=== PATIENT | female | born 1985 | race Two or more races ===

== ENCOUNTER 2021-05-12 23:16 | Inpatient (IN) | payer SELFPAY ==
[~2021-05-12] VITALS: Ht 154.9 cm; Wt 102.0 kg
[2021-05-12] MEDS ORDERED: 0.9 % SODIUM CHLORIDE 10 ML DISP.SYRIN. IV PRN (23:45)
[2021-05-12] MEDS ORDERED: BUTORPHANOL 2 MG/ML VIAL. IVP PRN ×2 (23:45)
[2021-05-12] MEDS ORDERED: LIDOCAINE 1% PF 30 ML VIAL. INJ PRN (23:45)
[2021-05-12] MEDS ORDERED: OXYTOCIN 30 UNIT/500 ML PREMIX 500 ML IV PRN ×2 (23:45)
[2021-05-12] MEDS ORDERED: ACETAMINOPHEN 325 MG TABLET. PO PRN (23:45)
[2021-05-12] MEDS ORDERED: TERBUTALINE 1 MG/ML VIAL. SQ PRN (23:45)
[2021-05-13 00:45] LABS: BASO # 0.2 x10^3/uL (0.0-0.2); BASO % 1 % (0-3); EOS # 0.2 x10^3/uL (0.0-0.7); EOS % 1 % (0-3); HEMATOCRIT 34.5 % (36.0-47.0); LYMPH # 2.7 x10^3/uL (1.0-4.8); LYMPH % 15 % (24-48); MEAN CORPUSCULAR HEMOGLOBIN 27 pg (25-35); MEAN CORPUSCULAR HGB CONC 32 g/dL (31-37); MEAN CORPUSCULAR VOLUME 83 fL (79-100); MONO # 1.1 x10^3/uL (0.0-1.1); MONO % 6 % (0-9); NEUT # 14.3 x10^3/uL (1.8-7.7); NEUT % 78 % (31-73); PLATELET COUNT 308 x10^3/uL (140-400); RED BLOOD COUNT 4.15 x10^6/uL (3.50-5.40); RED CELL DISTRIBUTION WIDTH 16.7 % (11.5-14.5); WHITE BLOOD COUNT 18.5 x10^3/uL (4.0-11.0)
[2021-05-13 00:47] VITALS: BP 125/82
[2021-05-13 00:48] LABS: BILIRUBIN,URINE NEGATIVE (NEG); CLARITY,URINE HAZY; COLOR,URINE YELLOW; NITRITE,URINE NEGATIVE (NEG); PH,URINE 6.5 (<5.0-8.0); PROTEIN,URINE TRACE mg/dL (NEG-TRACE); UROBILINOGEN,URINE 0.2 mg/dL (0.2 mg/dL)
[2021-05-13 00:49] LABS: BACTERIA,URINE 0 /HPF (0-FEW); RBC,URINE 0 /HPF (0-2)
[2021-05-13] MEDS: IV RINGERS,LACTATED 1000ML 1,000 ML IV PRN ×3 (02:25→11:37)
[2021-05-13 03:56] LABS: % LYMPHS 14 % (24-48); % MONOS 7 % (0-10); % SEGS 79 % (35-66); PLT ESTIMATE ADEQUATE (ADEQUATE)
[2021-05-13] MEDS ORDERED: PENICILLIN G K 5,000,000 UNIT in IV DEXTROSE 5% 100ML 100 ML IV ONE (09:00)
--- NOTE | 2021-05-13 09:23 | PDOC1 ---
MARRIAGE PERFORMER H&P Date of Admission: Date of Admission: May 12, 2021 at 23:16 History of Present Illness: EDC: 05/21/21 LMP: 08/14/20 35y @ 38.6 by L=22 who presents to L&D with LOF. The pt was confirmed ruptured and admitted. The pt reported that the LOF occurred around 9 pm last night. She has not really felt many ctxs since rupture. She has been latently laboring over the night and was found to be 4-5 cm dilate at this point. When she arrived she dilated to 3 cm. The pt had a C/S at 27wks with her last . Attempts were made to get the OP report from [facility] to ensure that the incision on her uterus was on the lower uterine segment. She states that she presented with PPROM. She was inpt for about 2wks until she began to labor and the baby s leg was felt on exam. Her first delivery was as well (35wks). Discussed the potential for failure of TOLAC considering that this is her first term vaginal delivery. The pt was referred to [facility] for the h/o of the PTD. She never discussed her FSBS with them. PMH: Denies PSH: C/S x 1 Meds: PNV All: NKDA OBHx: 34wk x 1, 27wk C/S SH: no tob, no EtOH FH: thyroid disease/thyroid cancer Medications: Meds: Current Medications Medications (Trade) Dose Ordered Sig/Kee Route PRN Reason Start Time Stop Time Status Last Admin Dose Admin Ringer's Solution 1,000 ml @ 125 mls/hr Q8H PRN IV hydration 05/12/21 23:45 05/13/21 08:01 Oxytocin 500 ml @ 0 mls/hr CONT PRN IV SEE I/O RECORD 05/12/21 23:45 05/13/21 08:01 Penicillin G Potassium [id number] unit/Dextrose 100 ml @ 100 mls/hr 1X ONCE IV 05/13/21 09:00 05/13/21 09:59 05/13/21 08:42 Allergies: Coded Allergies: No Known Drug Allergies (Unverified , 05/13/21) Physical Exam: Vital Signs: Vital Signs Date Time Temp Pulse Resp B/P (MAP) Pulse Ox O2 Delivery O2 Flow Rate FiO2 05/13/21 00:47 98.2 90 18 125/82 (96) 98 Room Air 98.2 PE: GENERAL: No apparent distress. Alert and oriented. HEENT: Head normocephalic, atraumatic. NECK: Supple LUNGS: Clear to auscultation. HEART: RRR, S1, S2 present, pulses intact ABDOMEN: Soft, positive bowel sounds. EXTREMITIES: No cyanosis or edema. NEUROLOGIC: Normal speech, normal tone PSYCHIATRIC: Normal affect, normal mood. SKIN: No ulceration. FHT: 130s +acels/no decels/mLTV Onward: 4-5 min SVE: 4-5/75/-2 Labs: Laboratory Tests Test 05/12/21 23:45 05/13/21 00:15 05/13/21 00:30 05/13/21 02:01 Urine Collection Type Unknown Urine Color Yellow Urine Clarity Hazy Urine pH 6.5 (<5.0-8.0) Urine Specific [place] 1.020 (1.000-1.030) Urine Protein Trace mg/dL (NEG-TRACE) Urine Glucose (UA) Negative mg/dL (NEG) Urine Ketones (Stick) Trace mg/dL (NEG) Urine Blood Moderate (NEG) Urine Nitrite Negative (NEG) Urine Bilirubin Negative (NEG) Urine Urobilinogen Dipstick 0.2 mg/dL (0.2 mg/dL) Urine Leukocyte Esterase Small (NEG) Urine RBC 0 /HPF (0-2) Urine WBC 1-4 /HPF (0-4) Urine Squamous Epithelial Cells Mod /LPF Urine Bacteria 0 /HPF (0-FEW) SARS-CoV-2 Antigen (Rapid) Negative (NEGATIVE) White Blood Count 18.5 x10^3/uL (4.0-11.0) H Red Blood Count 4.15 x10^6/uL (3.50-5.40) Hemoglobin 11.0 g/dL (12.0-15.5) L Hematocrit 34.5 % (36.0-47.0) L Mean Corpuscular Volume 83 fL (79-100) Mean Corpuscular Hemoglobin 27 pg (25-35) Mean Corpuscular Hemoglobin Concent 32 g/dL (31-37) Red Cell Distribution Width 16.7 % (11.5-14.5) H Platelet Count 308 x10^3/uL (140-400) Neutrophils (%) (Auto) 78 % (31-73) H Lymphocytes (%) (Auto) 15 % (24-48) L Monocytes (%) (Auto) 6 % (0-9) Eosinophils (%) (Auto) 1 % (0-3) Basophils (%) (Auto) 1 % (0-3) Neutrophils # (Auto) 14.3 x10^3/uL (1.8-7.7) H Lymphocytes # (Auto) 2.7 x10^3/uL (1.0-4.8) Monocytes # (Auto) 1.1 x10^3/uL (0.0-1.1) Eosinophils # (Auto) 0.2 x10^3/uL (0.0-0.7) Basophils # (Auto) 0.2 x10^3/uL (0.0-0.2) Segmented Neutrophils % 79 % (35-66) H Lymphocytes % 14 % (24-48) L Monocytes % 7 % (0-10) Platelet Estimate Adequate (ADEQUATE) Glucose Level 98 mg/dL (70-99) Treponema pallidum Antibody Nonreactive (Nonreactive) Glucose (Fingerstick) 100 mg/dL (70-99) H Test 05/13/21 04:04 05/13/21 08:16 Glucose (Fingerstick) 101 mg/dL (70-99) H 91 mg/dL (70-99) Laboratory Tests 05/13/21 00:30 Laboratory Tests 05/13/21 00:30 Laboratory Tests 05/13/21 00:30 Assessment & Plan: A/P 35y @ 38.6 by L=22 1.) SROM will start Pit for augmentation 2.) Prev C/S x 1 - desires TOLAC, Will attempt to get OP report from [facility] 3.) H/o PPROM at 27wks 4.) H/o PTD at 34wks 5.) A1DM - dx'ed 04/14/21, FSBS nml so far 6.) GERD 7.) TDAP given 05/07/21 8.) Flu vaccine given 05/07/21 9.) Fetus cat I FHT 10.) GBS pos on PCN GUSTABO WAY MD May 13, 2021 09:23
[2021-05-13] MEDS ORDERED: fentaNYL PF VIAL 100 MCG/2 ML VIAL ONE (10:51)
[2021-05-13] MEDS ORDERED: ROPIVacaine 0.2% PF 10 ML VIAL. ONE ×2 (10:52→11:00)
[2021-05-13] MEDS ORDERED: L&D EPIDURAL SYRINGE 50 ML ONE (10:52)
[2021-05-13] MEDS ORDERED: L&D EPIDURAL 50 ML SYRINGE. ONE (11:00)
[2021-05-13] MEDS ORDERED: BUPIVACAINE MPF 0.25% 30 ML VIAL. ONE (12:15)
[2021-05-13] MEDS ORDERED: PENICILLIN G K 2,500,000 UNIT in IV DEXTROSE 5% 50 ML IV SCH (13:00)
[2021-05-13] MEDS ORDERED: ACETAMINOPHEN 325 MG TABLET. PO PRN (14:30)
[2021-05-13] MEDS ORDERED: SIMETHICONE 80 MG TAB.CHEW PO PRN (14:30)
[2021-05-13] MEDS ORDERED: OXYTOCIN 30 UNIT/500 ML PREMIX 500 ML IV PRN (14:30)
[2021-05-13] MEDS ORDERED: MMR per PROTOCOL. MC PRN (14:30)
[2021-05-13] MEDS ORDERED: diphenhydrAMINE HCL 25 MG CAPSULE PO PRN (14:30)
[2021-05-13] MEDS ORDERED: MAG HYDROX/ALUMINUM HYD/SIMETH 30 ML ORAL.SUSP PO PRN (14:30)
[2021-05-13] MEDS ORDERED: ZOLPIDEM 5 MG TABLET. PO PRN (14:30)
[2021-05-13] MEDS ORDERED: TDaP (BOOSTRIX) per PROTOCOL. MC PRN (14:30)
[2021-05-13] MEDS ORDERED: PHENYLEPH/MINERAL OIL/PETROLAT RECTAL OINTMENT TUBE. RC PRN (14:30)
[2021-05-13] MEDS ORDERED: 0.9 % SODIUM CHLORIDE 10 ML DISP.SYRIN. IV PRN (14:30)
[2021-05-13] MEDS ORDERED: oxyCODONE/APAP 5/325 1 TAB TABLET PO PRN (14:30)
[2021-05-13] MEDS ORDERED: BENZOCAINE 20% TOPICAL AEROSOL SPRAY 57GM CAN. TP PRN (14:30)
[2021-05-13] MEDS ORDERED: MAGNESIUM HYDROXIDE 2,400 MG/30 ML ORAL.SUSP. PO PRN (14:30)
[2021-05-13] MEDS ORDERED: HYDROCORTISONE 1% TOPICAL OINTMENT 30GM TUBE. TP PRN (14:30)
--- NOTE | 2021-05-13 14:31 | PDOC4 ---
VAGINAL DELIVERY DATE DATE: 05/13/21 TIME: 14:31 TIME Patient delivered a viable male over intact perineum at 1336. Wt 7 lb 8.5 oz. Apgars 8/9. Placenta delivered spontaneously, intact with 3VC. 2nd degree laceration repaired in nml fashion with 2'0 vicryl . Good hemostasis noted. 20 U of Pit given with IVF. EBL 300 cc. WEIGHT Weight [ ] GUSTABO WAY MD May 13, 2021 14:31
[2021-05-13] MEDS: IBUPROFEN 400 MG TABLET. PO PRN (16:12)
[2021-05-13 16:30] VITALS: BP 125/70
[2021-05-13 17:27] VITALS: BP 137/67
[2021-05-14] MEDS: IBUPROFEN 400 MG TABLET. PO PRN ×2 (05:58→17:52)
[2021-05-14 06:22] VITALS: BP 112/69
[2021-05-14 06:23] LABS: HEMATOCRIT 26.2 % (36.0-47.0); HEMOGLOBIN 8.4 g/dL (12.0-15.5); RED BLOOD COUNT 3.17 x10^6/uL (3.50-5.40); RED CELL DISTRIBUTION WIDTH 16.9 % (11.5-14.5); WHITE BLOOD COUNT 22.6 x10^3/uL (4.0-11.0)
--- NOTE | 2021-05-14 08:36 | PDOC ---
GARMENT FINISHER PROGRESS NOTE Date of Service: DATE: 05/14/21 TIME: 08:34 Subjective: Doing well. Pain well managed with PO meds. Tolerates activity, diet, and voiding without difficulty. Otherwise denies complaints. Objective: Objective: FF @ U/1, scant lochia. Vital Signs: Vital Signs Date Time Temp Pulse Resp B/P (MAP) Pulse Ox O2 Delivery O2 Flow Rate FiO2 05/13/21 16:30 Room Air 05/13/21 16:30 98.2 102 20 125/70 (88) 99 98.2 Vital Signs Date Time Temp Pulse Resp B/P (MAP) Pulse Ox O2 Delivery O2 Flow Rate FiO2 05/14/21 06:22 98.1 86 18 112/69 (83) 98 Room Air 98.1 Labs: Laboratory Tests Test 05/13/21 09:59 05/13/21 12:49 05/13/21 13:58 05/14/21 05:50 Glucose (Fingerstick) 100 mg/dL (70-99) H 110 mg/dL (70-99) H 135 mg/dL (70-99) H White Blood Count 22.6 x10^3/uL (4.0-11.0) H Red Blood Count 3.17 x10^6/uL (3.50-5.40) L Hemoglobin 8.4 g/dL (12.0-15.5) L Hematocrit 26.2 % (36.0-47.0) L Mean Corpuscular Volume 83 fL (79-100) Mean Corpuscular Hemoglobin 27 pg (25-35) Mean Corpuscular Hemoglobin Concent 32 g/dL (31-37) Red Cell Distribution Width 16.9 % (11.5-14.5) H Platelet Count 266 x10^3/uL (140-400) Glucose Level 101 mg/dL (70-99) H Laboratory Tests 05/14/21 05:50 Laboratory Tests 05/14/21 05:50 Laboratory Tests 05/14/21 05:50 Physical Exam: GENERAL: No apparent distress. Alert and oriented. HEENT: Head normocephalic, atraumatic. NECK: Supple LUNGS: Clear to auscultation. HEART: RRR, S1, S2 present, pulses intact ABDOMEN: Soft, positive bowel sounds. EXTREMITIES: No cyanosis or edema. NEUROLOGIC: Normal speech, normal tone PSYCHIATRIC: Normal affect, normal mood. SKIN: No ulceration. Assessment & Plan: PPD # 1, routine PP care. Anticipate d/c home tomorrow. DANIEL KIMBALL CNM May 14, 2021 08:36
[2021-05-14] MEDS: DOCUSATE SODIUM 100 MG CAPSULE. PO PRN ×2 (08:50→17:52)
[2021-05-14] MEDS: PRENATAL MULTIVITAMIN TABLET. PO SCH (08:50)
[2021-05-14] MEDS: FERROUS SULFATE 325 MG TABLET. PO SCH ×2 (08:50→17:52)
[2021-05-14 13:05] VITALS: BP 112/69
[2021-05-14 18:07] VITALS: BP 129/75
[2021-05-14 23:15] VITALS: BP 114/69
[2021-05-15] MEDS: IBUPROFEN 400 MG TABLET. PO PRN ×2 (02:09→10:17)
[2021-05-15 05:30] VITALS: BP 98/63
[2021-05-15 08:25] VITALS: BP 123/76
[2021-05-15] MEDS: DOCUSATE SODIUM 100 MG CAPSULE. PO PRN (10:17)
[2021-05-15] MEDS: PRENATAL MULTIVITAMIN TABLET. PO SCH (10:17)
[2021-05-15] MEDS: FERROUS SULFATE 325 MG TABLET. PO SCH (10:17)
--- NOTE | 2021-05-15 13:10 | PDOC ---
GRIPPER INSTALLER PROGRESS NOTE Date of Service: DATE: 05/15/21 TIME: 13:08 Subjective: Doing well. . Pain well managed with PO meds. Tolerates activity, diet, and voiding without difficulty. Otherwise denies complaints. Desires d/c home. Objective: Objective: FF @ U/1, scant lochia. Vital Signs: Vital Signs Date Time Temp Pulse Resp B/P (MAP) Pulse Ox O2 Delivery O2 Flow Rate FiO2 05/14/21 09:15 Room Air 05/14/21 13:05 98.2 93 18 112/69 (83) 97 98.2 Vital Signs Date Time Temp Pulse Resp B/P (MAP) Pulse Ox O2 Delivery O2 Flow Rate FiO2 05/15/21 08:25 98.4 75 18 123/76 (92) Room Air 98.4 05/15/21 05:30 98 Physical Exam: GENERAL: No apparent distress. Alert and oriented. HEENT: Head normocephalic, atraumatic. NECK: Supple LUNGS: Clear to auscultation. HEART: RRR, S1, S2 present, pulses intact ABDOMEN: Soft, positive bowel sounds. EXTREMITIES: No cyanosis or edema. NEUROLOGIC: Normal speech, normal tone PSYCHIATRIC: Normal affect, normal mood. SKIN: No ulceration. Assessment & Plan: Discharge instructions reviewed to include pain/bleeding precautions, signs of mastitis, and sx of PPD vs. normal baby blues. RTO 6 weeks for routine PP f/u. Discharged to home, ambulatory, independent with ADLs, in stable condition. DANIEL KIMBALL CNM May 15, 2021 13:10
[2021-05-15 14:45] VITALS: BP 121/74
--- NOTE | 2021-05-15 15:00 | NUR ---
Home care instructions done and when putting baby in car seat found it was to big. Dad to go get a new one. Tried to use [employer] [facility] but unable to get a new one.
--- NOTE | 2021-05-15 16:35 | NUR ---
Dismissed abm to so in car per pt request. Home care instructions given and copy to pt .New car seat working well. Appt card given to pt for jalen in june. Stable on feet
== END 2021-05-15 16:35 | disposition home or self-care (01) | DRG 807 ==
LOC: OBSVTOIN 23:16 → 3 SO LND 23:16
PROVIDERS: ADMIT Obstetrics & Gynecology; ATTEND Obstetrics & Gynecology
PROC: 10E0XZZ Delivery of Products of Conception, External Approach (ICD-10-PCS; principal; 2021-05-13)
PROC: 0KQM0ZZ Repair Perineum Muscle, Open Approach (ICD-10-PCS; 2021-05-13)
PROC: 3E0R3BZ Introduction of Anesthetic Agent into Spinal Canal, Percutaneous Approach (ICD-10-PCS; 2021-05-13)
PROC: 00HU33Z Insertion of Infusion Device into Spinal Canal, Percutaneous Approach (ICD-10-PCS; 2021-05-13)
DX: O24.420 Gestational diabetes mellitus in childbirth, diet controlled (principal); Z37.0 Single live birth; O99.824 Streptococcus B carrier state complicating childbirth; K21.9 Gastro-esophageal reflux disease without esophagitis; O99.62 Diseases of the digestive system complicating childbirth; O70.1 Second degree perineal laceration during delivery; Z3A.38 38 weeks gestation of pregnancy; Z80.8 Family history of malignant neoplasm of other organs or systems; Z20.822 Contact with and (suspected) exposure to COVID-19
CPT/HCPCS: 36415; 81001; 82947; 82962; 85007; 85025; 85027; 86592; 86850; 86900; 86901; 87086; 87426; J2540; J2590; J2795; J3010; J7060; J7120; U0003; G0378